=== PATIENT | female | born 1970 | race Caucasian/White ===

== ENCOUNTER 2018-03-13 17:18 | Emergency (ER) | payer OTHER ==
[~2018-03-13] VITALS: Ht 157.5 cm; Wt 70.9 kg
--- NOTE | 2018-03-13 17:35 | EMERGENCY ROOM VISIT NOTE ---
History Report prepared by Sarthak: César Suarez Under the Supervision of: Dr. Leobardo Maier D.O. First contact with patient: 17:28 Chief Complaint: OTHER COMPLAINT Stated Complaint: NEEDS BLOOD TRANSFUSION History of Present Illness The patient is a 47 year old female with a history of Graves disease and Michelle who presents to the Emergency Room with complaints of a persistent need for a blood transfusion today. She states that she is low on blood, and her hemoglobin was in the 6-range. 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 The patient says that she was not having irregular periods leading up to this. She states that her last regular period was in December. She adds that she has an ultrasound of her uterus scheduled for tomorrow. The patient says that she follows-up with Dr. Cabrales's office. The patient notes that she has been getting dizzy and short of breath with walking. She denies any nausea or vomiting. She states that she has never had a blood transfusion before. The patient is an occasional smoker. Source of History: patient Onset: Today Position: other (global) Symptom Intensity: hemoglobin in 6-range Quality: other (need for blood transfusion) Associated Symptoms: + SOB, No nausea, No vomiting Note: Dizzy with walking. Review of Systems See HPI for pertinent positives & negatives. A total of 10 systems reviewed and were otherwise negative. Past Medical & Surgical Medical Problems: (1) Graves disease (2) Michelle's disease Family History No pertinent family history Social History Smoking Status: Current Some Day Smoker Marital Status: Housing Status: lives with family Occupation Status: employed Current/Historical Medications Scheduled Multiple Vitamins W/ Minerals (Womens One Daily), 1 TAB PO DAILY Allergies Coded Allergies: No Known Allergies (Unverified , 03/14/18) Physical Exam Vital Signs Date Time Temp Pulse Resp B/P (MAP) Pulse Ox O2 Delivery O2 Flow Rate FiO2 03/14/18 01:00 129/85 03/14/18 01:00 36.8 82 17 129/85 96 03/14/18 00:55 82 18 93 03/14/18 00:50 36.9 83 17 116/79 94 03/14/18 00:50 116/79 03/14/18 00:45 84 21 94 03/14/18 00:40 124/77 03/14/18 00:40 36.9 83 17 124/77 95 03/14/18 00:35 84 20 96 03/14/18 00:30 83 20 120/64 95 03/14/18 00:30 36.9 80 18 120/64 95 03/14/18 00:20 85 17 120/69 96 03/14/18 00:20 36.9 82 17 120/69 96 03/14/18 00:10 36.9 84 17 118/77 96 03/14/18 00:10 83 20 118/77 94 03/14/18 00:00 36.8 81 17 120/75 96 03/14/18 00:00 83 19 120/75 96 03/13/18 23:54 36.8 86 17 123/70 95 03/13/18 23:50 88 20 123/70 94 03/13/18 23:40 88 16 129/68 96 03/13/18 23:37 125/64 03/13/18 23:30 85 17 03/13/18 23:20 86 19 03/13/18 23:10 88 19 03/13/18 23:00 92 18 03/13/18 22:54 88 21 126/70 97 03/13/18 22:26 86 03/13/18 21:53 87 18 130/68 98 Room Air 03/13/18 19:54 85 24 113/64 96 Room Air 03/13/18 18:24 92 21 136/81 96 Room Air 03/13/18 18:24 89 03/13/18 17:25 37.0 107 20 143/73 97 Room Air Physical Exam GENERAL: Patient is awake, alert, and in no acute distress. Patient is resting comfortably and showing no signs of anxiety EYES: Pale conjunctiva noted. EARS, NOSE, MOUTH AND THROAT: The nose is without any evidence of any deformity. Mucous membranes are moist tongue is midline NECK: The neck is nontender and supple. RESPIRATORY: Normal respiratory effort is noted there is no evidence of wheezing rhonchi or rales CARDIOVASCULAR: Regular rate and rhythm noted there no murmurs rubs or gallops normal S1 normal S2 GASTROINTESTINAL: The abdomen is soft. Bowel sounds are present in all quadrants. Abdomen is nontender MUSCULOSKELETAL/EXTREMITIES: There is no evidence of gross deformity full range of motion is noted in the hips and shoulders SKIN: There is no obvious evidence of any rash. There are no petechiae, pallor or cyanosis noted. NEUROLOGIC: Patient is awake alert and oriented x3 strength is symmetric patellar reflexes are 2+ bilaterally Medical Decision & Procedures Laboratory Results 03/13/18 18:02 Red Blood Count 3.08, Mean Corpuscular Volume 71.4, Mean Corpuscular Hemoglobin 21.1, Mean Corpuscular Hemoglobin Concent 29.5, Neutrophils (%) (Auto) 63.4, Lymphocytes (%) (Auto) 27.8, Monocytes (%) (Auto) 4.9, Eosinophils (%) (Auto) 3.2, Basophils (%) (Auto) 0.6, Neutrophils # (Auto) 4.42, Lymphocytes # (Auto) 1.94, Monocytes # (Auto) 0.34, Eosinophils # (Auto) 0.22, Basophils # (Auto) 0.04 03/13/18 18:02 Test 03/13/18 18:02 White Blood Count 6.97 K/uL (4.8-10.8) Red Blood Count 3.08 M/uL (4.2-5.4) Hemoglobin 6.5 g/dL (12.0-16.0) Hematocrit 22.0 % (37-47) Mean Corpuscular Volume 71.4 fL (80-100) Mean Corpuscular Hemoglobin 21.1 pg (25-34) Mean Corpuscular Hemoglobin Concent 29.5 g/dl (32-36) Platelet Count 267 K/uL (130-400) Neutrophils (%) (Auto) 63.4 % Lymphocytes (%) (Auto) 27.8 % Monocytes (%) (Auto) 4.9 % Eosinophils (%) (Auto) 3.2 % Basophils (%) (Auto) 0.6 % Neutrophils # (Auto) 4.42 K/uL (1.4-6.5) Lymphocytes # (Auto) 1.94 K/uL (1.2-3.4) Monocytes # (Auto) 0.34 K/uL (0.11-0.59) Eosinophils # (Auto) 0.22 K/uL (0-0.5) Basophils # (Auto) 0.04 K/uL (0-0.2) RDW Standard Deviation 48.0 fL (36.4-46.3) RDW Coefficient of Variation 18.6 % (11.5-14.5) Immature Granulocyte % (Auto) 0.1 % Immature Granulocyte # (Auto) 0.01 K/uL (0.00-0.02) Giant Platelets 1+ Polychromasia 1+ Hypochromasia PRESENT Anisocytosis PRESENT Microcytosis PRESENT Prothrombin Time 9.9 SECONDS (9.0-12.0) Prothromb Time International Ratio 0.9 (0.9-1.1) Activated Partial Thromboplast Time 20.8 SECONDS (21.0-31.0) Partial Thromboplastin Ratio 0.8 Anion Gap 7.0 mmol/L (3-11) Est Creatinine Clear Calc Drug Dose 97.2 ml/min Estimated GFR () 121.9 Estimated GFR (Non- 105.2 BUN/Creatinine Ratio 16.4 (10-20) Calcium Level 8.4 mg/dl (8.5-10.1) Total Bilirubin 0.4 mg/dl (0.2-1) Aspartate Amino Transf (AST/SGOT) 18 U/L (15-37) Alanine Aminotransferase (ALT/SGPT) 26 U/L (12-78) Alkaline Phosphatase 78 U/L (45-117) Total Protein 8.8 gm/dl (6.4-8.2) Albumin 3.8 gm/dl (3.4-5.0) Globulin 5.0 gm/dl (2.5-4.0) Albumin/Globulin Ratio 0.8 (0.9-2) Human Chorionic Gonadotropin, Qual NEG (NEG) Laboratory results per my review. ED Course 1730: The patient was evaluated in room B2. A complete history and physical examination were performed. 1855: I reevaluated the patient. We are doing blood consent. 2030: The patient was signed out to Dr. Schuster at change of shift. Medical Decision Differential diagnosis: Etiologies such as metabolic, infection, hypo/hyperglycemia, electrolyte abnormalities, cardiac sources, intracerebral event, toxicologic, neurologic, as well as others were entertained. Nursing notes reviewed. The patient is a 47-year-old female who presented to the emergency department at the request of her primary care physician for abnormal laboratory studies. The patient has had ongoing vaginal bleeding for quite some time. She has had multiple weeks of vaginal bleeding. She started having symptoms of dizziness and she had laboratory studies done by her primary care physician group that showed anemia. The patient was sent to the emergency department for transfusion. I explained to her that we normally do not do blood transfusions in the ER but she did not wish to stay in the hospital. I did not feel it was safe for the patient to go home at this time so the patient was crossmatched for a blood transfusion. Consent was obtained by myself. The blood was still not ready at change of shift so the patient was signed out to Dr. Schuster at change of shift. Please see his note for continuation of care. The patient was advised to follow-up for her ultrasound as well as her appointment with OB/ MANAGER OF NETWORK to ensure that no surgical issue developed that would explain the patient's ongoing vaginal bleeding. Otherwise she was encouraged to return the emergency department immediately if symptoms change worsen or the need arises. Medication Reconcilliation Current Medication List: was personally reviewed by me Blood Pressure Screening Patient's blood pressure: Elevated blood pressure Blood pressure disposition: Elevated BP felt to be situational Impression Primary Impression: Anemia Additional Impression: Abnormal vaginal bleeding Scribe Attestation The scribe's documentation has been prepared under my direction and personally reviewed by me in its entirety. I confirm that the note above accurately reflects all work, treatment, procedures, and medical decision making performed by me. Departure Information Dispostion Still a Patient (signed out to Dr. Schuster) Referrals Zuleika Cabrales M.D. (PCP) Patient Instructions ED Bleed Irregular Vaginal, [facility], Transfusion Blood When Need , Transfusion Cancer Blood Product Additional Instructions Follow-up for your ultrasound as scheduled. 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 Call your family doctor in the morning to schedule a follow-up appointment. Rest and avoid any strenuous activity. Return to the emergency department immediately if symptoms change worsen or the need arises. Problem Qualifiers Primary Impression: Anemia Anemia type: unspecified type Qualified Codes: D64.9 - Anemia, unspecified
[2018-03-13 18:11] VITALS: Ht 157.5 cm; Wt 70.9 kg
[2018-03-13] MEDS ORDERED: MULT-240 PO (18:19)
[2018-03-13 18:49] LABS: INR 0.9 (0.9-1.1); PTT PATIENT 20.8 SECONDS (21.0-31.0)
[2018-03-13 18:52] LABS: ALBUMIN 3.8 gm/dl (3.4-5.0); CALCIUM 8.4 mg/dl (8.5-10.1); CREATININE 0.66 mg/dl (0.60-1.20); POTASSIUM 3.3 mmol/L (3.5-5.1)
[2018-03-13 18:55] LABS: TOTAL PROTEIN 8.8 gm/dl (6.4-8.2)
[2018-03-13 18:56] LABS: HEMOGLOBIN 6.5 g/dL (12.0-16.0); MEAN CELL VOLUME 71.4 fL (80-100); MEAN CORPUSCULAR HEMOGLOBIN 21.1 pg (25-34); MEAN CORPUSCULAR HGB CONC 29.5 g/dl (32-36); PLATELET COUNT 267 K/uL (130-400); RED CELL DISTRIBUTION WIDTH CV 18.6 % (11.5-14.5); WHITE BLOOD COUNT 6.97 K/uL (4.8-10.8)
[2018-03-13 19:01] LABS: BASO % 0.6 %; BASO ABS # 0.04 K/uL (0-0.2); EOS % 3.2 %; EOS ABS # 0.22 K/uL (0-0.5); IG# 0.01 K/uL (0.00-0.02); LYMPH % 27.8 %; LYMPH ABS # 1.94 K/uL (1.2-3.4); MONO % 4.9 %; MONO ABS # 0.34 K/uL (0.11-0.59); NEUT % 63.4 %; NEUT ABS # 4.42 K/uL (1.4-6.5)
--- NOTE | 2018-03-13 22:56 | EMERGENCY ROOM VISIT NOTE ---
ED Visit Note The patient was signed out to me awaiting a blood transfusion. It turns out that the patient had multiple antibodies in her blood and the blood was not available here. After talking with the patient, the patient would prefer to get the blood tomorrow. The blood would not be available until possibly 2 or 3 in the morning. She states that she would prefer to have this done tomorrow after her 10 AM ultrasound appointment. The patient was stable here. She is mildly symptomatic with regards to her anemia but it appears to be more of a chronic issue. She does not have lightheadedness or dizziness with standing. The patient was felt to be stable for discharge. I spoke with Dr. Scherer about the patient. The patient sees Dr. Cabrales. I requested that Dr. Scherer contact Dr. Cabrales to see if she can set up [facility] blood transfusion tomorrow. The blood consent has already been signed. The patient will be discharged. If [facility] blood transfusion is not possible, the patient will return to the emergency department tomorrow for transfusion. The patient actually did receive 1 unit of blood here as the blood bank was able to find a unit meeting her type and screen antibodies. She did receive this transfusion without difficulty.
[2018-03-13 23:54] VITALS: BP 123/70; PULSE 86; TEMP 36.8; O2SAT 95
[2018-03-14] VITALS (8 sets, daily range): BP systolic 116–129; BP diastolic 64–85; PULSE 80–84; TEMP 36.8–36.9; O2SAT 93–96
== END 2018-03-14 01:11 | disposition still patient (30) ==
LOC: C.EDB 17:19
DX: D64.9 Anemia, unspecified (principal); N93.9 Abnormal uterine and vaginal bleeding, unspecified; E05.00 Thyrotoxicosis with diffuse goiter without thyrotoxic crisis or storm; E06.3 Autoimmune thyroiditis; F17.210 Nicotine dependence, cigarettes, uncomplicated